=== PATIENT | female | born 1960 | race Hispanic/Latino ===

== ENCOUNTER → 2017-07-11 | Outpatient (CLI) | payer OTHER ==
--- NOTE | 2017-07-11 10:33 | Diagnostic Imaging Report ---
PROCEDURE:HIPS BILAT TWO VWS(+/- PELVIS) INDICATION:Bilateral hip pain COMPARISON:None. FINDINGS: No acute displaced fracture or dislocation. Femoral heads project appropriately over the acetabula. Symmetric mild hip joint space narrowing with marginal acetabular osteophytosis. Soft tissues unremarkable. 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 Dictated by: West Scott M.D. on 07/11/2017 at 10:32 Electronically approved by: West Scott M.D. on 07/11/2017 at 10:32
--- NOTE | 2017-07-11 10:37 | Diagnostic Imaging Report ---
PROCEDURE:L-SPINE COMPLETE COMPARISON:None. INDICATIONS:LOW BACK PAIN FINDINGS: There are 5 nonrib-bearing lumbar-type vertebral bodies. No acute, displaced fracture or subluxation. No pars interarticularis defects are identified on the oblique projections. Mild disc space narrowing and marginal osteophytosis involving L1-2, L2-3, and L3-4. Facet joints are relatively well maintained. Sacroiliac joints are intact. The sacral body and foramina are intact superiorly. Inferiorly, the sacrum is obscured by rectal gas and stool. CONCLUSION: Mild multilevel degenerative disc changes of the upper lumbar spine. Dictated by: West Scott M.D. on 07/11/2017 at 10:36 Electronically approved by: West Scott M.D. on 07/11/2017 at 10:36
--- NOTE | 2017-07-11 10:43 | Diagnostic Imaging Report ---
PROCEDURE:SACRUM X-RAY INDICATION:Low back pain COMPARISON:None. FINDINGS: No acute, displaced fracture or dislocation. The sacroiliac joints are intact. Sacral foramina are also intact superiorly. Soft tissues are unremarkable. CONCLUSION: No acute osseous abnormality. Dictated by: West Scott M.D. on 07/11/2017 at 10:42 Electronically approved by: West Scott M.D. on 07/11/2017 at 10:42
== END ==
LOC: RAD 08:15
PROVIDERS: ATTEND Internal Medicine
DX: M47.817 Spondylosis without myelopathy or radiculopathy, lumbosacral region (principal); M16.0 Bilateral primary osteoarthritis of hip
CPT/HCPCS: 72110; 72220; 73521

== ENCOUNTER → 2017-10-22 | Outpatient (CLI) | payer OTHER | LOC: MAMMO 09:26 | PROVIDERS: ATTEND Internal Medicine | DX: Z12.31 Encounter for screening mammogram for malignant neoplasm of breast (principal) | CPT/HCPCS: 77067 ==

== ENCOUNTER → 2019-01-24 | Outpatient (CLI) | payer OTHER ==
--- NOTE | 2019-02-05 08:44 | Diagnostic Imaging Report ---
#[id number] - MGSCRBIL #BILATERAL DIGITAL SCREENING MAMMOGRAM WITH CAD: 01/24/2019 CLINICAL: Routine screening. Comparison is made to exams dated: 10/22/2017 mammogram - [facility] and 11/29/2016 mammogram - [facility], [place]. The tissue of both breasts is predominantly fatty. Current study was also evaluated with a Computer Aided Detection (CAD) system. There are benign vascular calcifications in both breasts. There also are benign lymph nodes in the left breast. No significant masses, calcifications, or other findings are seen in either breast. There has been no significant interval change. IMPRESSION: BENIGN There is no mammographic evidence of malignancy. A 1 year screening mammogram is recommended. The patient will be notified by letter of the results. CESAR parrish/kizzy:02/03/2019 10:23:11 [employer] Supervisor: Sharyn WEBER(Evert)(Johan), [facility] letter sent: Normal Exam Mammogram BI-RADS: 2 Benign
== END ==
LOC: MAMMO 09:33
PROVIDERS: ATTEND Internal Medicine
DX: Z12.31 Encounter for screening mammogram for malignant neoplasm of breast (principal)
CPT/HCPCS: 77067

== ENCOUNTER → 2020-02-16 | Outpatient (CLI) | payer OTHER | LOC: MAMMO 10:36 | PROVIDERS: ATTEND Internal Medicine | DX: Z12.31 Encounter for screening mammogram for malignant neoplasm of breast (principal) | CPT/HCPCS: 77067 ==

== ENCOUNTER → 2020-07-20 | Outpatient (CLI) | payer OTHER | LOC: RAD 15:41 | PROVIDERS: ATTEND Internal Medicine | DX: J06.9 Acute upper respiratory infection, unspecified (principal) | CPT/HCPCS: 71046 ==

== ENCOUNTER → 2020-09-08 | Outpatient (CLI) | payer OTHER | LOC: RAD 11:42 | PROVIDERS: ATTEND Student in an Organized Health Care Education/Training Program | DX: M25.561 Pain in right knee (principal); M25.562 Pain in left knee; M54.5 Low back pain; L40.9 Psoriasis, unspecified; L40.50 Arthropathic psoriasis, unspecified | CPT/HCPCS: 72110 ==

== ENCOUNTER → 2021-03-21 | Outpatient (CLI) | payer OTHER | LOC: RAD 10:30 | PROVIDERS: ATTEND Family Medicine | DX: M54.6 Pain in thoracic spine (principal); M54.50 Low back pain, unspecified | CPT/HCPCS: 72072; 72110 ==

== ENCOUNTER → 2023-04-23 | Outpatient (REF) | payer OTHER | LOC: MRI 08:42 | PROVIDERS: ATTEND Internal Medicine | DX: M75.02 Adhesive capsulitis of left shoulder (principal); M54.16 Radiculopathy, lumbar region | CPT/HCPCS: 72110 ==